=== PATIENT | male | born 1990 | race Caucasian/White ===

== ENCOUNTER 2021-06-06 13:06 | Emergency (ER) | payer OTHER ==
[2021-06-06 13:56] LABS: HEMOGLOBIN 15.5 gm/dl (14.0-17.5); RED BLOOD COUNT 4.69 M/UL (4.20-5.50); WHITE BLOOD COUNT 8.9 K/UL (4.5-11.0)
[2021-06-06 14:16] LABS: BUN/CREATININE RATIO 12 (0-10)
== END 2021-06-06 14:43 | disposition home or self-care (01) ==
LOC: ER1 13:06
PROVIDERS: Emergency Medicine
DX: R10.84 Generalized abdominal pain (principal); R10.30 Lower abdominal pain, unspecified; R11.0 Nausea; F17.200 Nicotine dependence, unspecified, uncomplicated
CPT/HCPCS: 80053; 81001; 83690; 85025; 96374; 99284; G0480; J3411; J3475; J7030